=== PATIENT | female | born 1945 | race Hispanic/Latino ===

== ENCOUNTER 2017-07-07 22:29 | Inpatient (IN) | payer OTHER ==
[~2017-07-07] VITALS: Ht 154.9 cm; Wt 90.5 kg
[~2017-07-07 22:29] MED LIST: ASPIR-LOW81 MG PO; CYCLOBENZAPRINE10 MG PO; ENDOCET 5-3251 EACH PO; LIPITOR10 MG PO; LISINOPRIL10 MG PO; MOTRIN; MURO-128 5300 DROP/1 BOTH EYES; MURO-128 OPHTH3.5 GM BOTH EYES; NABUMETONE500 MG PO; TYLENOL EXTRA500 MG PO; VITAMIN D1000 INTUN PO; Zestril,Prinivil PO; Zocor PO
[2017-07-08 07:07] VITALS: BP 118/68
[2017-07-08 14:13] VITALS: BP 100/50
[2017-07-08 21:07] VITALS: BP 100/55
[2017-07-08 23:45] VITALS: BP 113/67
[2017-07-09 04:42] VITALS: BP 115/56
[2017-07-09 07:03] LABS: HEMATOCRIT 35.1 % (36.0-46.0); MCV 74.1 FL (83-99)
[2017-07-09 07:30] VITALS: BP 131/74
[2017-07-09] MEDS ORDERED: ASPIR-LOW81 MG PO (09:23)
[2017-07-09] MEDS ORDERED: OXYCODONE HCL5 MG PO (09:24)
[2017-07-09 11:04] VITALS: BP 122/78
[2017-07-09 15:52] VITALS: BP 131/79
[2017-07-09 16:11] LABS: HEMATOCRIT 35.4 % (36.0-46.0); MCH 22.6 PG (29.0-34.0); MCHC 31.1 G/DL (30.0-36.0); MCV 72.8 FL (83-99); PLATELET COUNT 163 K/uL (156-360); RBC DIS.WIDTH-CV 14.7 % (11.8-14.6); RBC DIS.WIDTH-SD 38.6 % (39-53); RED BLOOD COUNT 4.86 M/uL (3.80-5.20); WHITE BLOOD COUNT 11.6 K/uL (4.1-10.2)
== END 2017-07-09 17:08 | disposition home or self-care (01) | DRG 483 ==
LOC: ENRESERV 22:29 → 3EAST 07-08 05:42 → 2SOUTH 07-08 05:42 → ENRESERV 07-08 12:57 → 3EAST 07-08 13:27
PROVIDERS: Family Medicine; Orthopaedic Surgery
PROC: 0RRK00Z Replacement of Left Shoulder Joint with Reverse Ball and Socket Synthetic Substitute, Open Approach (ICD-10-PCS; principal; 2017-07-08)
DX: M19.012 Primary osteoarthritis, left shoulder (principal); D50.9 Iron deficiency anemia, unspecified; I10 Essential (primary) hypertension; E78.5 Hyperlipidemia, unspecified; E11.9 Type 2 diabetes mellitus without complications; Z68.32 Body mass index [BMI] 32.0-32.9, adult
CPT/HCPCS: 83605; 85014; 85018; 85027; 85379; C1713; J0131; J0330; J0690; J1100; J2250; J2405; J2795; J3010; J7030; J7050